=== PATIENT | male | born 1965 | race Caucasian/White ===

== ENCOUNTER 2021-09-10 15:02 | Emergency (ER) | payer SELFPAY ==
--- NOTE | 2021-09-10 15:30 | NUR ---
PT STATED :" I DON'T WANT TO BE CHARGED". PATIENT LEFT WITHOUT BEING SEEN BY DR DEGROOT. NO FURTHER CARE PROVIDED FOR PATIENT.
== END 2021-09-10 15:30 | disposition left against medical advice (07) ==
LOC: MED 15:02
DX: M25.519 Pain in unspecified shoulder (principal); Z53.21 Procedure and treatment not carried out due to patient leaving prior to being seen by health care provider